=== PATIENT | female | born 1960 | race Caucasian/White ===

== ENCOUNTER 2022-10-17 17:06 | Emergency (ER) | payer OTHER, SELFPAY ==
[2022-10-17 17:08] VITALS: BP 156/75; PULSE 81; RESP 20; TEMP 36.7; O2SAT 98; BMI 48.4
--- NOTE | 2022-10-17 17:41 | CT_ITS ---
The [address] [address] Patient Name: ANDRE CAMARA MRN: [id number] date: 1960 Sex: F Assigned Patient Location: ER Current Patient Location: ER Accession/Order Number: [id number] Exam Date: 10/17/2022 17:31 Report Date: 10/17/2022 18:24 At the request of: GENIA RICK Procedure: CT head/brain wo con EXAM: CT head/brain wo con, CT facial bones wo con HISTORY: fall COMPARISON: None. TECHNIQUE: Axial CT scans through the head and facial bones were obtained without IV contrast administration. Dose reduction techniques were achieved by using: automated exposure control and/or adjustment of mA and /or kV according to patient size and/or use of iterative reconstruction technique. CT BRAIN FINDINGS: There is no evidence of acute intracranial hemorrhage or abnormal extra-axial fluid collection. No mass effect or midline shift is seen. There is no evidence of large acute territorial infarction. There is no hydrocephalus. No definite acute fracture is identified. No acute soft tissue abnormality seen. CT/CT head/brain wo con IMPRESSION: No CT evidence of acute intracranial abnormality. CT FACIAL FINDINGS: No acute fracture or posttraumatic malalignment. The globes are intact bilaterally. There is no retrobulbar hematoma. The soft tissues are unremarkable. The visualized paranasal sinuses show no air-fluid level. Mastoid air cells are clear. IMPRESSION: No acute abnormality. Electronically authenticated by: ESTEBAN SNEED Date: 10/17/2022 18:24
--- NOTE | 2022-10-17 17:41 | CT_ITS ---
The [address] [address] Patient Name: ANDRE CAMARA MRN: [id number] date: 1960 Sex: F Assigned Patient Location: ER Current Patient Location: ER Accession/Order Number: [id number] Exam Date: 10/17/2022 17:31 Report Date: 10/17/2022 18:24 At the request of: GENIA RICK Procedure: CT facial bones wo con EXAM: CT head/brain wo con, CT facial bones wo con HISTORY: fall COMPARISON: None. TECHNIQUE: Axial CT scans through the head and facial bones were obtained without IV contrast administration. Dose reduction techniques were achieved by using: automated exposure control and/or adjustment of mA and /or kV according to patient size and/or use of iterative reconstruction technique. CT BRAIN FINDINGS: There is no evidence of acute intracranial hemorrhage or abnormal extra-axial fluid collection. No mass effect or midline shift is seen. There is no evidence of large acute territorial infarction. There is no hydrocephalus. No definite acute fracture is identified. No acute soft tissue abnormality seen. CT/CT facial bones wo con IMPRESSION: No CT evidence of acute intracranial abnormality. CT FACIAL FINDINGS: No acute fracture or posttraumatic malalignment. The globes are intact bilaterally. There is no retrobulbar hematoma. The soft tissues are unremarkable. The visualized paranasal sinuses show no air-fluid level. Mastoid air cells are clear. IMPRESSION: No acute abnormality. Electronically authenticated by: ESTEBAN WINTERU Date: 10/17/2022 18:24
[2022-10-17] MEDS: ACETAMINOPHEN 500 MG TABLET 1000 MG PO (18:22)
[2022-10-17] MEDS: ADACEL DIPH,PERTUSS(ACELL),TET VAC/PF 0.5 ML ADULT SYRINGE IM (18:22)
--- NOTE | 2022-10-17 18:42 | ED_ITS ---
Documented by User: Nida Bay 10/17/22 19:19 HPI - Fall General Chief Complaint: Fall Stated Complaint: fall Time Seen by Provider: 10/17/22 17:18 Source: patient Mode of arrival: Wheelchair History of Present Illness HPI Narrative: 61-year-old female is brought [facility] the emergency [facility]. She was upstairs waiting for her granddaughter to deliver a baby she tripped and fell and smacked her nose on a doorknob. She is on eliq[place]. She has a small little abrasion across the nasal bridge on the left internal nostril area. No loss of consciousness. She states she did hit her head on the side of a door. Related Data Allergies Allergy/AdvReac Type Severity Reaction Status Date / Time Penicillins AdvReac Severe Rash Verified 10/17/22 17:12 Review of Systems ROS Narrative All Systems are negative except as noted/marked.All systems reviewed and otherwise negative Exam Narrative Exam Narrative: P Nurses note and vital signs reviewed and patient is not hypoxic. General: The patient appears well and in no apparent distress. Patient is resting comfortably on cart. Skin: Warm, dry, no pallor noted. There is no rash noted. Head: Normocephalic, atraumatic. Neck: Supple, no pain tenderness midline full range of motion Eye: Normal conjunctiva, no drainage, EOMI. PERRL Ears, Nose, Mouth, and Throat:The bridge swelling, small area of bleeding from the left nostril nares area oral mucosa is moist. Nares patent. Mouth without vesicles. Ear canals patent. Tm's without Erythema Cardiovascular: Regular Rate and Rhythm Respiratory: Patient is in no distress, no accessory muscle use, lungs are clear to auscultation, no wheezing, rales or rhonchi Musculoskeletal: The patient has no evidence of calf tenderness, no pitting edema, symmetrical pulses noted bilaterally Neurological: A&O x4, normal speech Psychiatric: Cooperative Constitutional Vital Signs, click to edit/add: Last Vital Signs Temp 98.0 F 10/17/22 17:08 Pulse 81 10/17/22 17:08 Resp 20 10/17/22 17:08 BP 156/75 H 10/17/22 17:08 Pulse Ox 98 10/17/22 17:08 O2 Del Method Room Air 10/17/22 17:08 Course Vital Signs Vital signs: Vital Signs Temperature 98.0 F 10/17/22 17:08 Pulse Rate 81 10/17/22 17:08 Respiratory Rate 20 10/17/22 17:08 Blood Pressure 156/75 H 10/17/22 17:08 Pulse Oximetry 98 10/17/22 17:08 Oxygen Delivery Method Room Air 10/17/22 17:08 Temperature 98.0 F 10/17/22 17:08 Pulse Rate 81 10/17/22 17:08 Respiratory Rate 20 10/17/22 17:08 Blood Pressure 156/75 H 10/17/22 17:08 Pulse Oximetry 98 10/17/22 17:08 Oxygen Delivery Method Room Air 10/17/22 17:08 MDM - Fall MDM Narrative Medical decision making narrative: Patient was brought to the emergency room via wheelchair from her [facility]. Patient had an accidental fall presented here to the emergency room. She had a small abrasion on her left nares. Patient is on a liquid. Patient's head and facial bones were CT and were normal by radiology reading. Patient's area of her left nostril with the abrasion was cleaned with Hibiclens normal saline. Dermabond was used to help control bleeding. No hematoma noted. No septal hematoma nose noted. Patient is alert and oriented no other injuries. She is able to be discharged home and follow back up with her primary care physician. Patient was taken via wheelchair backup to the [facility] or her granddaughter is currently giving . Differential Diagnosis Differential diagnosis: Likely other Medical Records Attestation: I reviewed the patient's medical records. Imaging Data CT scan - head: Radiologist's impression: Patient Name: ANDRE CAMARA MRN: [id number] date: 1960 Sex: F Assigned Patient Location: ER Current Patient Location: ER Accession/Order Number: [id number] Exam Date: 10/17/2022 17:31 Report Date: 10/17/2022 18:24 At the request of: NIDA BAY Procedure: CT head/brain wo con EXAM: CT head/brain wo con, CT facial bones wo con HISTORY: fall COMPARISON: None. TECHNIQUE: Axial CT scans through the head and facial bones were obtained without IV contrast administration. Dose reduction techniques were achieved by using: automated exposure control and/or adjustment of mA and /or kV according to patient size and/or use of iterative reconstruction technique. CT BRAIN FINDINGS: There is no evidence of acute intracranial hemorrhage or abnormal extra-axial fluid collection. No mass effect or midline shift is seen. There is no evidence of large acute territorial infarction. There is no hydrocephalus. No definite acute fracture is identified. No acute soft tissue abnormality seen. IMPRESSION: No CT evidence of acute intracranial abnormality. CT FACIAL FINDINGS: No acute fracture or posttraumatic malalignment. The globes are intact bilaterally. There is no retrobulbar hematoma. The soft tissues are unremarkable. The visualized paranasal sinuses show no air-fluid level. Mastoid air cells are clear. IMPRESSION: No acute abnormality. Electronically authenticated Discharge Plan Discharge Chief Complaint: Fall Clinical Impression: Abrasion of nose, Head injury, Fall Patient Disposition: Home, Self-Care Time of Disposition Decision: 18:41 Condition: Good Instructions: Head Injury (ED), Abrasion (ED), Skin Adhesive Care (ED) Stand Alone Forms: Portal Instructions Referrals: Physician,Non-Staff, [Primary Care Provider] - 1 week Discharge Date/Time: 10/17/22 19:03 Documented by User: Elicia Moreira MD 10/17/22 21:10 HPI - Fall General Chief Complaint: Fall Stated Complaint: fall Time Seen by Provider: 10/17/22 17:18 Related Data Allergies Allergy/AdvReac Type Severity Reaction Status Date / Time Penicillins AdvReac Severe Rash Verified 10/17/22 17:12 Exam Constitutional Vital Signs, click to edit/add: Last Vital Signs Temp 98.0 F 10/17/22 17:08 Pulse 81 10/17/22 17:08 Resp 20 10/17/22 17:08 BP 156/75 H 10/17/22 17:08 Pulse Ox 98 10/17/22 17:08 O2 Del Method Room Air 10/17/22 17:08 Course Vital Signs Vital signs: Vital Signs Temperature 98.0 F 10/17/22 17:08 Pulse Rate 81 10/17/22 17:08 Respiratory Rate 20 10/17/22 17:08 Blood Pressure 156/75 H 10/17/22 17:08 Pulse Oximetry 98 10/17/22 17:08 Oxygen Delivery Method Room Air 10/17/22 17:08 Temperature 98.0 F 10/17/22 17:08 Pulse Rate 81 10/17/22 17:08 Respiratory Rate 20 10/17/22 17:08 Blood Pressure 156/75 H 10/17/22 17:08 Pulse Oximetry 98 10/17/22 17:08 Oxygen Delivery Method Room Air 10/17/22 17:08 MDM - Fall MDM Narrative Medical decision making narrative: Patient was brought to the emergency room via wheelchair from her [facility]. Patient had an accidental fall presented here to the emergency room. She had a small abrasion on her left nares. Patient is on a liquid. Patient's head and facial bones were CT and were normal by radiology reading. Patient's area of her left nostril with the abrasion was cleaned with Hibiclens normal saline. Dermabond was used to help control bleeding. No hematoma noted. No septal hematoma nose noted. Patient is alert and oriented no other injuries. She is able to be discharged home and follow back up with her primary care physician. Patient was taken via wheelchair backup to the [facility] or her granddaughter is currently giving . Attending physician attestation I have reviewed the mid-level documentation, agree with the documentation, medical decision making and treatment plan as outlined by the mid-level provider. Discharge Plan Discharge Chief Complaint: Fall Clinical Impression: Abrasion of nose, Head injury, Fall Patient Disposition: Home, Self-Care Time of Disposition Decision: 18:41 Condition: Good Instructions: Head Injury (ED), Abrasion (ED), Skin Adhesive Care (ED) Stand Alone Forms: Portal Instructions Referrals: Physician,Non-Staff, MD [Primary Care Provider] - 1 week Discharge Date/Time: 10/17/22 19:03
[2022-10-17] MEDS: SILVER NITRATE APPLICATOR STICK 1 APPLIC TOPICAL (19:00)
== END 2022-10-17 19:03 | disposition home or self-care (01) ==
PROVIDERS: Emergency Provider Emergency Medicine
DX: S00.31XA Abrasion of nose, initial encounter (principal); S09.90XA Unspecified injury of head, initial encounter; W01.198A Fall on same level from slipping, tripping and stumbling with subsequent striking against other object, initial encounter; Z23 Encounter for immunization; Z79.01 Long term (current) use of anticoagulants
CPT/HCPCS: 12011; 70450; 70486; 90471; 90715; 99285